=== PATIENT | female | born 1990 ===

== ENCOUNTER 2018-06-08 14:13 | Emergency (ER) | payer OTHER, SELFPAY ==
[2018-06-08 14:33] VITALS: BP 127/77; PULSE 87; TEMP 98.7; O2SAT 100
--- NOTE | 2018-06-08 15:13 | C.PDOC ---
History Of Present Illness 27 year old female patient presents to the ER with c/o lefft lower back pain for few weeks. Patient reports she tried a heat pad, but it makes it worse. 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 Patient denies weakness, numbness, fever and chills. Time Seen by Provider: 06/08/18 14:44 Chief Complaint (Nursing): Back Pain History Per: Patient History/Exam Limitations: no limitations Onset/Duration Of Symptoms: Days (weeks ) Current Symptoms Are (Timing): Still Present Past Medical History Reviewed: Historical Data, Nursing Documentation, Vital Signs Vital Signs: Last Vital Signs Temp 98.7 F 06/08/18 14:35 Pulse 87 06/08/18 14:35 Resp 18 06/08/18 15:20 BP 127/77 06/08/18 14:35 Pulse Ox 100 06/08/18 15:13 Family History: States: No Known Family Hx - Social History Hx Alcohol Use: No Hx Substance Use: No - Immunization History Hx Tetanus Toxoid Vaccination: No Hx Influenza Vaccination: Yes Hx Pneumococcal Vaccination: No Review Of Systems Except As Marked, All Systems Reviewed And Found Negative. Constitutional: Negative for: Fever, Chills Musculoskeletal: Positive for: Back Pain (low) Neurological: Negative for: Weakness, Numbness Physical Exam - Physical Exam Appears: Non-toxic, No Acute Distress Skin: Normal Color, Warm, Dry Head: Atraumatic, Normacephalic Eye(s): bilateral: Normal Inspection Oral Mucosa: Moist Throat: Normal Neck: Normal ROM, Supple Chest: Symmetrical, No Deformity Cardiovascular: Rhythm Regular Respiratory: Normal Breath Sounds Gastrointestinal/Abdominal: Soft, No Tenderness, No Other (flank pain) Back: No CVA Tenderness, No Vertebral Tenderness, Paraspinal Tenderness (left lumbar ) Extremity: Normal ROM (x4) Neurological/Psych: Oriented x3, Normal Speech ED Course And Treatment O2 Sat by Pulse Oximetry: 100 (RA) Pulse Ox Interpretation: Normal Medical Decision Making Medical Decision Making: tender L paralumbar musculature. probably positionally related to 8 m/o baby tending. ice pack in ED ice and NSAIDS educated. Disposition Doctor Will See Patient In The: Office Counseled Patient/Family Regarding: Studies Performed, Diagnosis - Disposition Referrals: [facility] [Outside] [facility] [Outside] [facility] [employer] [facility] [Outside] Disposition: HOME/ ROUTINE Disposition Time: 15:13 Condition: GOOD Additional Instructions: ice packs 1/2 hour per hour, nothing hot Tylenol 1000 mg every 6 hours as needed Avoid Tylenol with Codeine as this will come out in . Instructions: Lumbar Muscle Strain (DC) Forms: [employer] ([place]) - Clinical Impression Clinical Impression: Low back strain - Scribe Statement The provider has reviewed the documentation as recorded by the Duongibrl Lee Do Provider Attestation: All medical record entries made by the Scribe were at my direction and personally dictated by me. I have reviewed the chart and agree that the record accurately reflects my personal performance of the history, physical exam, medical decision making, and the department course for this patient. I have also personally directed, reviewed, and agree with the discharge instructions and disposition.
[2018-06-08 15:24] VITALS: RESP 18
== END 2018-06-08 15:23 | disposition home or self-care (01) ==
LOC: C.ER 14:13
DX: S39.012A Strain of muscle, fascia and tendon of lower back, initial encounter (principal); X58.XXXA Exposure to other specified factors, initial encounter